=== PATIENT | female | born 1970 | race Caucasian/White ===

== ENCOUNTER → 2016-07-04 08:25 | Outpatient (CLI) | payer OTHER ==
[2012-12-11 08:48] VITALS: BMI 28.1
[~2016-07-04 08:25] MED LIST: ADIPEX-P37.5 M1 PO; NORCO 10/325 TA1 TA1 PO; RESTORIL7.5 MG PO; TOPAMAX15 MG PO; VIIBRYD40 MG PO
== END ==
LOC: D.MAMMO 08:25
DX: Z12.31 Encounter for screening mammogram for malignant neoplasm of breast (principal)

== ENCOUNTER 2016-08-04 16:48 | Outpatient (CLI) | payer OTHER ==
[2012-12-11 08:48] VITALS: BMI 28.1
== END 2016-08-04 17:32 ==
LOC: D.MAMMO 16:48
DX: R22.2 Localized swelling, mass and lump, trunk (principal)

== ENCOUNTER → 2017-01-16 14:15 | Outpatient (CLI) | payer OTHER ==
[2012-12-11 08:48] VITALS: BMI 28.1
== END | disposition home or self-care (01) ==
LOC: D.MAMMO 12-19 09:30
DX: R92.8 Other abnormal and inconclusive findings on diagnostic imaging of breast (principal)

== ENCOUNTER → 2017-06-21 19:06 | Outpatient (CLI) | payer OTHER ==
[2012-12-11 08:48] VITALS: BMI 28.1
== END | disposition home or self-care (01) ==
LOC: D.MAMMO 09:00
DX: R92.8 Other abnormal and inconclusive findings on diagnostic imaging of breast (principal)

== ENCOUNTER → 2017-09-14 14:58 | Outpatient (CLI) | payer OTHER ==
[2012-12-11 08:48] VITALS: BMI 28.1
== END | disposition home or self-care (01) ==
LOC: D.MRI 14:58
DX: R51 Headache (principal)

== ENCOUNTER 2018-08-13 08:00 | Outpatient (CLI) | payer OTHER ==
[2012-12-11 08:48] VITALS: BMI 28.1
== END 2018-08-13 23:59 | disposition home or self-care (01) ==
LOC: D.MAMMO 08:00
PROVIDERS: ATTEND Clinical Nurse Specialist Family Health
DX: Z12.31 Encounter for screening mammogram for malignant neoplasm of breast (principal)